=== PATIENT | female | born 1950 | race Caucasian/White ===

== ENCOUNTER 2017-03-09 06:21 | Day surgery (SDC) | payer SELFPAY ==
[2017-03-07 10:16] VITALS: BP 151/81
[2017-03-07 10:20] LABS: BASOPHILS % (AUTO) 0.9 % (0.0-5.0); EOSINOPHILS % (AUTO) 1.4 % (0.0-8.0); HEMATOCRIT 43.5 % (36-48); LYMPHOCYTES % (AUTO) 28.4 % (21.0-51.0); MEAN CORPUSCULAR HEMOGLOBIN 30.3 pg (27.0-33.0); MEAN CORPUSCULAR HGB CONC 33.2 g/dL (32.0-36.0); MEAN CORPUSCULAR VOLUME 91.3 fL (79-99); MONOCYTES % (AUTO) 7.9 % (3.0-13.0); NEUTROPHILS % (AUTO) 61.4 % (40.0-77.0); PLATELET COUNT (AUTO) 207 K/uL (130-400); RED BLOOD CELL COUNT(AUTO) 4.77 MIL/uL (4.00-5.50); RED CELL DISTRIBUTION WIDTH 14.6 % (11.0-15.5); WHITE BLOOD COUNT (AUTO) 6.4 K/uL (4.8-10.8)
[2017-03-07 10:33] LABS: CREATININE 0.9 mg/dL (0.5-1.5); POTASSIUM 4.3 mmol/L (3.5-5.1)
[~2017-03-09] VITALS: Ht 180.3 cm; Wt 101.6 kg
[2017-03-09] VITALS (17 sets, daily range): BP systolic 122–181; BP diastolic 64–97
[~2017-03-09 06:21] MED LIST: ALLO100T PO; TIOT18CA3 IH
[2017-03-09] MEDS: CEFAZOLIN SODIUM 1 GM VIAL IVP SCH ×2 (07:00→08:00)
[2017-03-09] MEDS ORDERED: WATER FOR INJECTION,STERILE 20 ML VIAL ONE (07:07)
[2017-03-09] MEDS ORDERED: LACTATED RINGERS 1000ML 1,000 ML IV ONE (07:07)
[2017-03-09] MEDS ORDERED: ONDANSETRON HCL 4 MG/2 ML VIAL ONE (07:44)
[2017-03-09] MEDS ORDERED: DEXAMETHASONE SOD PHOSPHATE 10MG/ML 1ML VIAL ONE (07:44)
[2017-03-09] MEDS ORDERED: GLYCOPYRROLATE 0.2 MG/ML 5 ML VIAL ONE (07:45)
[2017-03-09] MEDS ORDERED: FENTANYL CITRATE PF 50 MCG/1 ML 2ML VIAL ONE (07:46)
[2017-03-09] MEDS ORDERED: PROPOFOL 10 MG/ML 20ML VIAL IV ONE (07:46)
[2017-03-09] MEDS ORDERED: MIDAZOLAM HCL 1 MG/ML 2ML VIAL ONE (07:46)
[2017-03-09] MEDS ORDERED: BUPIVACAINE/PF 0.5% 30ML VIAL ONE (08:35)
[2017-03-09] MEDS ORDERED: EPINEPHRINE 1 MG/ML AMPULE ONE (08:35)
[2017-03-09] MEDS ORDERED: SODIUM CHLORIDE 0.9% 10 ML VIAL ONE (08:38)
[2017-03-09] MEDS ORDERED: KETOROLAC TROMETHAMINE 30MG/ML ONE (09:25)
== END 2017-03-09 10:40 | disposition home or self-care (01) ==
LOC: DAH 06:21
PROVIDERS: ATTEND Surgery
DX: C43.72 Malignant melanoma of left lower limb, including hip (principal); J45.909 Unspecified asthma, uncomplicated; E66.9 Obesity, unspecified
CPT/HCPCS: 11606; 12032; 36415; 80048; 85025; 88304; A4450; A4452; A4510; A4600; A4606; A4930; J0171; J0690; J1100; J1885; J2250; J2405; J2704; J3010; J3490 ×2; J7120